=== PATIENT | female | born 1950 | race Caucasian/White ===

== ENCOUNTER 2017-01-11 18:20 | Emergency (ER) | payer MEDICARE ==
[~2017-01-11] VITALS: Ht 167.6 cm; Wt 99.8 kg
[2017-01-11 18:40] VITALS: BP 138/67
[2017-01-11] MEDS ORDERED: Morphine Sulfate 4mg/ml Inj IVP ONE (18:45)
[2017-01-11 19:50] LABS: BASOPHILS % (AUTO) 1.7 % (0.0-2.0); EOSINOPHILS % (AUTO) 1.1 % (0.0-3.0); LYMPHOCYTES % (AUTO) 16.3 % (20.0-45.0); MEAN CORPUSCULAR HEMOGLOBIN 29.3 PG (27.0-31.0); MEAN CORPUSCULAR HGB CONC 34.5 G/DL (32.0-36.0); MEAN CORPUSCULAR VOLUME 85 FL (80-99); MEAN PLATELET VOLUME 7.3 FL (6.5-10.1); MONOCYTES % (AUTO) 7.9 % (1.0-10.0); NEUTROPHILS % (AUTO) 73.1 % (45.0-75.0); PLATELET COUNT 201 K/UL (150-450); RED BLOOD COUNT 4.49 M/UL (4.20-5.40); RED CELL DISTRIBUTION WIDTH 12.5 % (11.6-14.8); WHITE BLOOD COUNT 10.2 K/UL (4.8-10.8)
[2017-01-11 19:56] LABS: ALANINE AMINOTRANSFERASE 14 U/L (3-33); ALBUMIN/GLOBULIN RATIO 1.6 (1.0-2.7); ANION GAP 12 (5-15); ASPARTATE AMINO TRANSFERASE 19 U/L (5-40); CALCIUM 9.3 mg/dL (8.6-10.2); CARBON DIOXIDE 25 mEQ/L (20-30); CHLORIDE 102 mEQ/L (98-107); CREATININE 0.9 mg/dL (0.5-0.9); GLOMERULAR FILTRATION RATE > 60 mL/min (>60); HEMOLYSIS 18; POTASSIUM 3.8 mEQ/L (3.4-4.9); SODIUM 139 mEQ/L (135-145)
[2017-01-11 19:58] LABS: INR 0.9 (0.9-1.1); PROTHROMBIN TIME 9.9 SEC (9.30-11.50)
--- NOTE | 2017-01-11 21:19 | Emergency Room Report ---
History of Present Illness General Chief Complaint: Multiple Trauma/Fall Source: Patient, EMS Present Illness HPI This patient missed a couple stops when she was stepping down from the kitchen to the living room. She fell onto her left side and has severe pain in her left hip. She was unable to put weight on her left side prior to arrival. She has no other injuries or complaints. Allergies: Coded Allergies: No Known Allergies (Unverified , 01/11/17) Patient History Past Medical History: see triage record, HTN, other - psoriatic arthritis Social History: Denies: alcohol use, drug use, smoking Last Menstrual Period: N/A Reviewed Nursing Documentation: PMH: Agreed, PSxH: Agreed Nursing Documentation-PMH Past Medical History: No History, Except For Hx Hypertension: Yes Hx Pacemaker: No - ARTHRITIS, KNEE REPLACEMENT JON, Review of Systems All Other Systems: negative except mentioned in HPI Physical Exam Vital Signs Date Time Temp Pulse Resp B/P Pulse Ox O2 Delivery O2 Flow Rate FiO2 01/11/17 18:28 98.2 78 17 192/98 100 Room Air Sp02 EP Interpretation: reviewed, normal General Appearance: no apparent distress, alert, GCS 15, non-toxic Head: normocephalic, atraumatic Eyes: bilateral eye PERRL, bilateral eye normal inspection ENT: hearing grossly normal, normal pharynx, no angioedema, normal voice Neck: full range of motion, supple/symm/no masses Respiratory: chest non-tender, lungs clear, normal breath sounds, speaking full sentences Cardiovascular #1: regular rate, rhythm, no edema Gastrointestinal: normal bowel sounds, non tender, soft, non-distended, no guarding, no rebound Rectal: deferred Musculoskeletal: back normal, other - +pain w/ ROM of L. hip. Neurologic: alert, oriented x3, responsive, motor strength/tone normal, sensory intact, speech normal Psychiatric: judgement/insight normal, memory normal, mood/affect normal, no suicidal/homicidal ideation Skin: normal color, no rash, warm/dry, well hydrated Medical Decision Making Diagnostic Impression: Primary Impression: Acetabular fracture ER Course This patient has an acetabular fracture of her left hip/pelvis. This patient will need surgical treatment for this. Orthopedics here at [facility] are unable to manage this fracture. This patient will be transferred for higher level of care. She is pending transfer and accepted at another hospital. I will attempt to get this patient transferred to [facility]. Labs Test 01/11/17 17:25 White Blood Count 10.2 K/UL (4.8-10.8) Red Blood Count 4.49 M/UL (4.20-5.40) Hemoglobin 13.2 G/DL (12.0-16.0) Hematocrit 38.1 % (37.0-47.0) Mean Corpuscular Volume 85 FL (80-99) Mean Corpuscular Hemoglobin 29.3 PG (27.0-31.0) Mean Corpuscular Hemoglobin Concent 34.5 G/DL (32.0-36.0) Red Cell Distribution Width 12.5 % (11.6-14.8) Platelet Count 201 K/UL (150-450) Mean Platelet Volume 7.3 FL (6.5-10.1) Neutrophils (%) (Auto) 73.1 % (45.0-75.0) Lymphocytes (%) (Auto) 16.3 % (20.0-45.0) Monocytes (%) (Auto) 7.9 % (1.0-10.0) Eosinophils (%) (Auto) 1.1 % (0.0-3.0) Basophils (%) (Auto) 1.7 % (0.0-2.0) Prothrombin Time 9.9 SEC (9.30-11.50) Prothromb Time International Ratio 0.9 (0.9-1.1) Activated Partial Thromboplast Time 25 SEC (23-33) Sodium Level 139 mEQ/L (135-145) Potassium Level 3.8 mEQ/L (3.4-4.9) Chloride Level 102 mEQ/L (98-107) Carbon Dioxide Level 25 mEQ/L (20-30) Anion Gap 12 (5-15) Blood Urea Nitrogen 16 mg/dL (7-23) Creatinine 0.9 mg/dL (0.5-0.9) Estimat Glomerular Filtration Rate > 60 mL/min (>60) Glucose Level 106 mg/dL (74-106) Calcium Level 9.3 mg/dL (8.6-10.2) Total Bilirubin 0.3 mg/dL (0.0-1.2) Aspartate Amino Transf (AST/SGOT) 19 U/L (5-40) Alanine Aminotransferase (ALT/SGPT) 14 U/L (3-33) Alkaline Phosphatase 67 U/L (35-104) Total Protein 6.0 g/dL (6.6-8.7) Albumin 3.7 g/dL (3.5-5.2) Globulin 2.3 g/dL Albumin/Globulin Ratio 1.6 (1.0-2.7) CT/MRI/US Diagnostic Results CT/MRI/US Diagnostic Results : Imaging Test Ordered: CT pelvis Impression Comminuted, displaced fracture of the posterior column of the left acetabulum. Last Vital Signs Date Time Temp Pulse Resp B/P Pulse Ox O2 Delivery O2 Flow Rate FiO2 01/11/17 20:29 98.0 01/11/17 18:40 74 17 138/67 100 Room Air Disposition: [facility] Condition: Stable TELMA STOCK D.O. Jan 11, 2017 21:19
[2017-01-11] MEDS ORDERED: D5 1/2NS 1,000 ML IV SCH (22:34)
[2017-01-11] MEDS ORDERED: LORazepam Inj 2mg/ml 1ml IV PRN (22:45)
[2017-01-11] MEDS ORDERED: Zolpidem 5mg tab ORAL PRN (22:45)
[2017-01-11] MEDS ORDERED: Mylanta II UD 30ml ORAL PRN (22:45)
[2017-01-11] MEDS ORDERED: Morphine Sulfate 2mg/ml Inj IVP PRN (22:45)
[2017-01-11] MEDS ORDERED: Morphine Sulfate 4mg/ml Inj IVP PRN (22:45)
[2017-01-11] MEDS ORDERED: Miralax 17gm pkt ORAL PRN (22:45)
[2017-01-12] MEDS ORDERED: Morphine Sulfate 4mg/ml Inj IVP ONE (01:30)
[2017-01-12 02:47] VITALS: BP 148/70
[2017-01-12 02:56] VITALS: BP 148/70
--- NOTE | 2017-01-12 08:24 | Diagnostic Imaging Report ---
Indication: TRAUMA, left-sided pain status post fall Technique: Noncontrast spiral acquisitions obtained through the pelvis. Multiplanar reconstructions generated. Total dose length product 929 mGycm. CTDIvol(s) 31 mGy. Dose reduction achieved using automated exposure control Comparison: Plain radiographs of earlier the same day Findings: There is an unusual comminuted fracture the posterior acetabulum. This mostly involves the posterior column and posterior lip. There is suggestion of slight irregularity of the central anterior acetabular roof, but this is similar to the contralateral side, suspected this does not represent the fracture. No hip fracture is demonstrated. No other pelvic fracture is evident. The sacrum is intact. There are mild degenerative changes of the lumbosacral junction noted. There is slight swelling of the left hip musculature and piriformis musculature, consistent with either strain or contusion. The uterus demonstrates multiple small calcified fibroids. There is colonic diverticulosis incidentally noted. Impression: Positive for comminuted posterior column acetabular fracture, as described Negative for hip fracture. No other pelvic fracture demonstrated Other findings as noted This agrees with the preliminary interpretation provided overnight by Dr. Hollins The CT scanner at [facility] is accredited by the [employer] and the scans are performed using protocols designed to limit radiation exposure to as low as reasonably achievable to attain images of sufficient resolution adequate for diagnostic evaluation.
[2017-01-12] MEDS ORDERED: Heparin 5000 units/ml inj SUBQ SCH (09:00)
--- NOTE | 2017-01-12 11:57 | Diagnostic Imaging Report ---
Indication: TRAUMA: Pain, fall Technique: 2 views of the left hip, one view the pelvis Comparison: None Findings: Patient body habitus, osteoporosis limited assessment. There is irregularity of the posterior acetabulum, consistent with acetabular fracture. No hip fracture demonstrated. Impression: Positive for left posterior acetabular fracture. Negative for hip fracture
== END 2017-01-12 02:56 | disposition short-term general hospital (02) ==
LOC: EDBD 18:20 → EMR 19:10
DX: S32.442A Displaced fracture of posterior column [ilioischial] of left acetabulum, initial encounter for closed fracture (principal); K57.90 Diverticulosis of intestine, part unspecified, without perforation or abscess without bleeding; D25.9 Leiomyoma of uterus, unspecified; W17.89XA Other fall from one level to another, initial encounter; Y93.9 Activity, unspecified; Y92.009 Unspecified place in unspecified non-institutional (private) residence as the place of occurrence of the external cause; I10 Essential (primary) hypertension; Z96.653 Presence of artificial knee joint, bilateral; M19.90 Unspecified osteoarthritis, unspecified site
CPT/HCPCS: 36415; 72170; 72192; 73502; 80053; 85025; 85610; 85730; 96374; 96375; 99285; J2270; J2405